=== PATIENT | male | born 1945 | race Caucasian/White ===

== ENCOUNTER 2016-11-11 06:58 | Outpatient (CLI) | payer MEDICARE, OTHER ==
[~2016-11-11] VITALS: Ht 180.3 cm; Wt 111.9 kg
--- NOTE | ~2016-11-11 | ECHO ---
Transthoracic Echocardiography Report (TTE) Demographics Patient Name ROSCOE DUGGAN Date of Study 11/11/2016 Patient Number [id number] Visit Number [id number] Date of 1945 Room Number G6399 Accession Number [id number] Gender Male Age 71 year(s) Referring Susannah Harp MD Paddle Dyeing Machine Operator [place] Celis RVT, Physician RDCS Physician Interpreting Davon Palomo Alteration Tailor Apprentice Physician MD Supervising Ordering Physician Davon Palomo MD/ERIBERTO JONES Nurse Stress Shoe Laster Conclusions Contractility Score Summary Normal Left Ventricular contractility was noted. Summary Limited echo to evaluate aortic valve gradients. Unable to obtain pedoff gradients. The estimated left ventricular ejection fraction is 60-65%. There is moderate aortic stenosis by the Continuity Equation. The peak velocity is 3.36 m/s, the mean gradient is 31 mmHg, and the valve area based on the continuity equation is 1.1 cm2. Mild AI. There is mild aortic regurgitation. The AV gradients could be an underestimate, consider DOMENICA for transgastric gradients if clinically evident. Recommendation The patient was given the results of this study at the time of their office visit. Patient will f/u in clinic to discuss this further. Procedure Type of Study TTE procedure:Echo Limited w/o Contrast. Procedure Date Date: 11/11/2016 Start: 10:31 AM Study Location: Inpatient Portable Technical Quality: Fair due to poor acoustical window. Indications:Unstable angina and Aortic stenosis. Appropriate Use Criteria: 8 Patient Status: STAT Rhythm: Paced HR: 70 bpm BP: 159/75 mmHg Allergies - No known allergies. M-Mode/2D Measurements Cardiac Output: 5.9 l/min LVOT: 2.2 cm EF Estimated: 50 % LVOT VTI: 22.2 cm LV Stroke volume: 84.35 ml Doppler Measurements AV Peak Velocity: 3.36 m/s AV Peak Gradient: 45.16 mmHg AV Mean Gradient: 31 mmHg LVOT Peak Velocity: 1.1 m/s Findings Aortic Valve There is moderate aortic stenosis by the Continuity Equation. The peak velocity is 3.36 m/s, the mean gradient is 31 mmHg, and the valve area based on the continuity equation is 1.1 cm2. There is mild aortic regurgitation. Pericardial Effusion Trivial AI. Contractility Score LV regional wall motion:(0-Non visualized 1-Normal 2-Hypokinesis 3-Akinesis 4-Dyskinesis 5-Aneurysm) Signature dtt: DAV VIZCARRA dtd: 11/11/16 1031 Physician Self Edit
--- NOTE | ~2016-11-11 | CATH ---
Cardiac Diagnostic Report Demographics Patient Name URBAN Harp Gender Male Date of 1945 Age 71 year(s) Patient Number [id number] Date of Study 11/11/2016 Visit Number [id number] Room Number G63[address] [place] [id number] Ht 180.34 cm Wt 111.9 kg Referring Susannah Harp MD Primary Physician Physician Performing Davon Secondary Physician Physician Stacia JONES Diagnostic [facility] [place] Assisting Physician Physician Stacia JONES Interventional Physician Personal Clothing Laundry Aide Physician Findings and Conclusions Diagnostic Findings and Conclusion 1. Moderate disease prox diag 60%, 2. Moderate disease in OM branch distal to stent 60% focal lesion. Diagnostic Recommendations * Medical therapy *2D echo and re-assess AV stenosis *Continue medical therapy, lasix 40 mg PO qday for PATEL *Consider pulmonary w/u for symptoms of sob and PATEL *F/U clinic in 2 weeks Procedure Description The patient was brought to the diagnostic cardiac catheterization-EP laboratory in the fasting, non-sedated state. Informed consent was obtained in the written and verbal form after the risks and benefits were explained. The patient had no further questions and agreed to proceed. The planned puncture-incision site(s) were shaved and prepped with ChloraPrep and draped in the usual sterile manner. Conscious sedation, supplemental oxygen, and pain control medications were delivered by a registered nurse under physician guidance. Surface ECG rhythm, blood pressure measurement, and pulse oximetry were monitored throughout the procedure. Arterial access. The access site was infiltrated with lidocaine. The vessel was entered with the Seldinger technique. A sheath was advanced into the vessel and used for catheter placement. Selective left coronary angiography. A catheter was advanced into the left coronary vessel ostium under Fluoroscopic guidance. Contrast was injected by hand. Images were obtained in multiple projections. Selective right coronary angiography. A catheter was advanced into the right coronary vessel ostium under fluoroscopic guidance. Contrast was injected by hand. Images were obtained in multiple projections. Arterial artery hemostasis was achieved. The patient was transferred to a regular nursing floor via cart accompanied by a nurse. The patient left the laboratory in stable condition. Diagnostic Cath Status: Elective Procedure Procedure Type Diagnostic procedure:Angiography:, Coronary Angios w/[facility] Indications: New onset a-fib and Dyspnea with exertion. The procedure was explained in detail to the patient. Risks, complications and alternative treatments were reviewed. Written consent was obtained. Medications Reviewed with Patient prior to Procedure. Angiographic Findings Dominance: Right Cardiac Arteries and Lesion Findings LAD: Abnormal.20% stenosis, mid 30% stenosis LCx: Normal (0% Stenosis).OM stent patent, 0% focal stenosis. OM 2 50% mid small VS RCA: Abnormal.10% Stenosis, PL 20% stenosis Procedure Data Procedure Date Date: 11/11/2016Start: 09:09 AM Entry Locations - Retrograde Percutaneous access was performed through the Right Radial artery (Primary location). A 5 Fr sheath was inserted. Hemostasis was successfully obtained using a TR band. Closure Comments: 13 cc air by Marco Antonio Meade Procedure Medications Order and Administration + + + + + !Time !Medication !Dosage !Route ! + + + + + 11/11/2016 09:09 AM !Versed !1 mg ! ! + + + + 11/11/2016 09:10 AM !Fentanyl !50 mcg !I.V. ! + + + + + 11/11/2016 09:13 AM !Versed !1 mg ! ! + + + + + !11/11/2016 09:13 AM !Oxygen !2 l/min !NC ! + + + + + !11/11/2016 09:15 AM !Radial Verapamil !2.5 mg !I.A. ! + + + + + !11/11/2016 09:16 AM !Heparin (ACC_3) !4000 units !I.V. bolus ! + + + + + Devices Used - A5 Fr. BS JR 4 Diag. Catheterwas used for:Right coronary angiography. - A5 Fr. BS JL 3.5 Diag. Catheterwas used for:Left coronary angiography. - A5 Fr. BS Angled Pigtail Diag. Catheterwas used for:Left coronary angiography.Unable to cannulate the vessel. - A5 Fr. BS AL1 Diag. Catheterwas used for:Left coronary angiography. Contrast Material - Isovue 81160 ml Fluoroscopy Time: Diagnostic: 15:06 minutes. Total: 15:06 minutes. Fluoroscopy Dose: Diagnostic: 1419 mGy. Total: 1419 mGy. Estimated Blood Loss: 5 ml. Medical History Allergies - No known allergies. Risk Factors The patient risk factors include:prior PCI;prior CABG;hypertension, last creatinine: 1.1 mg/dl, creatinine clearance: 100.31 ml/min, dyslipidemia and prior LA . Admission Data Admission Date: 11/11/2016 Admission Time: 06:58 AM Admit Source: Other Insurance Payors: Medicare. Admission Medications + +------+------+ + + + + !Medication !Dosage!Times !Last !Last !Administered !Comments ! ! ! !Per !Delivery !Delivery ! ! ! ! ! !Day !Date !Time ! ! ! + +------+------+ + + + + !Aspirin ! ! ! ! !Yes ! ! !(any) ! ! ! ! ! ! ! + +------+------+ + + + + !Statin (any)! ! ! ! !Yes ! ! + +------+------+ + + + + !TYRON ! ! ! ! !Yes ! ! !Inhibitor ! ! ! ! ! ! ! !(any) ! ! ! ! ! ! ! + +------+------+ + + + + !Beta Princess! ! ! ! !Yes ! ! !(any) ! ! ! ! ! ! ! + +------+------+ + + + + Clinical Evaluation Leading to Procedure - The patient's CAD presentation was assessed as: Unstable angina. - The patient's anginal syndrome during the past two weeks was assessed as: Class II according to the [place] Cardiovascular [employer] Classification System (CCS). Anti-anginal medications were prescribed during the past two weeks. The medications are: Beta Blockers and Ca channel Blockers. - The patient has been in a state of heart failure within the past two weeks. - The patient's heart failure status was assessed as NYHA Class III, with CHF symptoms of PATEL. Hemodynamics Condition: Rest O2 Consumption: Estimated: 267.81Heart Rate: 70 bpm Pressures (mmHg) +-----+ + !Site !Pressure ! +-----+ + !AO !137/73 (102) ! +-----+ + Shunts Oxygen Values O2 Capacity 218.96 O2 Consumption 267.81 Discharge Data Discharge Date: 11/11/2016 Hospital Status: Outpatient Signatures dtt: STACIA VIZCARRA dtd: 11/11/16 0909 Physician Self Edit
[~2016-11-11 06:58] MED LIST: ACIDOPHILUS1 EAC4 PO; AMBIEN10 MG PO; ASPIRIN EC81 MG PO; COUMADIN6 MG PO; LIPITOR20 M1 PO; NITROSTAT0.4 MG SL; NORVASC10 MG PO; PAXIL20 MG PO; PROTONIX40 MG PO; TOPROL XL 5050 MG PO; TYLENOL EXTRA500 MG PO; ULTRAM50 MG PO; ZANTAC300 MG PO; ZESTRIL40 MG PO; [UNRECOGNIZED DRUG - OTHER] OPHTH
[2016-11-11 07:44] LABS: BASOPHIL # 0.1 K/uL (0.0-0.2); BASOPHIL % 0.7 %; EOSINOPHIL # 0.2 K/uL (0.0-0.5); EOSINOPHIL % 2.2 %; HEMATOCRIT 48.1 % (37.0-53.0); HEMOGLOBIN 16.1 g/dL (11.0-16.0); IMMATURE GRANULOCYTE % 0.4 %; LYMPHOCYTE # 2.9 K/uL (0.8-4.0); LYMPHOCYTE % 35.6 %; MCH 30.8 pg (27.0-34.0); MCHC 33.5 gm/dL (32.0-36.5); MCV 92.1 fl (83.0-98.0); MONOCYTE # 0.7 K/uL (0.0-1.0); MPV 10.1 fl (9.4-12.4); NEUTROPHIL # (ANC) 4.2 K/uL (1.4-9.0); NEUTROPHIL % 52.1 %; NRBC % 0 /100WBC (0-0.00); PLATELET COUNT 214 K/uL (150-450); RBC 5.22 M/uL (3.50-5.50); WBC 8.1 K/uL (4.0-11.0)
[2016-11-11 07:54] LABS: INR - (THERAPEUTIC) 1.34 (0.92-1.07); PROTIME 14.1 SECONDS (9.8-11.4); PTT 31 SECONDS (25-32)
[2016-11-11 08:00] LABS: ALBUMIN 3.4 gm/dL (3.5-5.0); ALK PHOS 161 IU/L (33-138); ALT 41 IU/L (12-78); BLOOD UREA NITROGEN 17 mg/dL (6-24); CALCIUM 8.2 mg/dL (8.5-10.5); CHLORIDE 102 mMol/L (96-110); CO2 26 mMol/L (22-32); CREATININE 1.1 mg/dL (0.6-1.3); ESTIMATED GFR (MDRD EQUATION) > 60; SODIUM 137 mMol/L (135-145); TOTAL BILIRUBIN 1.9 mg/dL (0.0-1.5); TOTAL PROTEIN 7.5 g/dL (6.0-8.4)
[2016-11-11 08:02] LABS: ANION GAP 13.4 (10.0-19.0); AST 54 IU/L (10-40); POTASSIUM 4.4 mMol/L (3.7-5.1)
[2016-11-11] MEDS ORDERED: LASIX40 MG PO (13:49)
== END 2016-11-11 14:25 | disposition disaster alternative care site (69) ==
LOC: GPCU 06:58 → GCAT 06:58 → GPOC 07:00 → GCAT 14:25 → GPOC 15:00
PROVIDERS: Internal Medicine Interventional Cardiology
PROC: 4A023N7 Measurement of Cardiac Sampling and Pressure, Left Heart, Percutaneous Approach (ICD-10-PCS; principal; 2016-11-11)
PROC: B216YZZ Fluoroscopy of Right and Left Heart using Other Contrast (ICD-10-PCS; 2016-11-11)
DX: I25.110 Atherosclerotic heart disease of native coronary artery with unstable angina pectoris (principal); I48.0 Paroxysmal atrial fibrillation; I35.0 Nonrheumatic aortic (valve) stenosis; R94.31 Abnormal electrocardiogram [ECG] [EKG]; G47.33 Obstructive sleep apnea (adult) (pediatric); E66.9 Obesity, unspecified; Z79.01 Long term (current) use of anticoagulants
CPT/HCPCS: C1769; J1644; J2001; J2250; J3010; J7030

== ENCOUNTER → 2016-11-25 | Outpatient (CLI) | payer MEDICARE, OTHER ==
[~2016-11-25] MED LIST changes: +LASIX40 MG PO
[2016-11-25 09:38] LABS: ANION GAP 10.5 (10.0-19.0); CALCIUM 8.7 mg/dL (8.5-10.5); CREATININE 1.1 mg/dL (0.6-1.3); POTASSIUM 4.5 mMol/L (3.7-5.1)
== END | disposition disaster alternative care site (69) ==
LOC: LNHI 09:14
PROVIDERS: Internal Medicine Interventional Cardiology
DX: I48.0 Paroxysmal atrial fibrillation (principal); I25.110 Atherosclerotic heart disease of native coronary artery with unstable angina pectoris; E78.4 Other hyperlipidemia; Z95.0 Presence of cardiac pacemaker